=== PATIENT | male | born 1995 | race Caucasian/White ===

== ENCOUNTER → 2021-04-15 07:06 | Outpatient (CLI) | payer OTHER, SELFPAY ==
--- NOTE | 2021-04-15 07:10 | DI.MRI.S_ITS ---
PROCEDURE: MR SHOULDER RT WO CON INDICATIONS: Bicipital tendinitis, unspecified shoulder TECHNIQUE: Noncontrast oblique coronal T2 fast spin echo with fat saturation, oblique sagittal T1 spin echo and T2 fast spin echo with fat saturation, axial T1 spin echo and T2 fast spin echo with fat saturation through the shoulder. COMPARISON: None. FINDINGS: Image quality: Excellent. Rotator cuff: Tendinosis and low-grade articular and bursal surface partial thickness tear involving distal supraspinatus at its insertion on the humeral head is seen extending to musculotendinous junction. Distal infraspinatus tendinosis is also noted. Distal subscapularis tendon is intact. No full-thickness rotator cuff tendon rupture. Sagittal images demonstrate no significant muscle atrophy. Bones and bursae: No bone marrow contusions or fractures. Mild acromioclavicular joint osteoarthritic changes are seen with downward osteophyte formation depressing the musculotendinous junction of supraspinatus. There is small amount of joint fluid and subacromial subdeltoid bursal fluid. Capsule and soft tissues: Focal area of signal abnormality within superior anterior labrum at 1 o'clock position is seen concerning for very subtle focal superior anterior labral tear. The long head of the biceps tendinosis is noted. The rotator interval appears normal, without fibrosis. The coracohumeral ligament is normal in thickness. IMPRESSION: 1. Tendinosis and low-grade articular and bursal surface partial thickness tear involving distal supraspinatus extending to musculotendinous junction. Distal infraspinatus and subscapularis tendinosis. No full-thickness rotator cuff tendon rupture. 2. Mild acromioclavicular joint osteoarthritis. No fracture or dislocation. Small amount of joint effusion and subacromial subdeltoid bursal fluid. 3. Finding is concerning for focal superior anterior labral tear at 1:00 a.m. Position. 4. Proximal intra-articular portion of long head of biceps tendinosis. Dictated by: Remi Pierre M.D. on 04/15/2021 at 8:11 Approved by: Remi Pierre M.D. on 04/15/2021 at 8:23
== END ==
PROVIDERS: Referring Provider Student in an Organized Health Care Education/Training Program; Visit Provider Student in an Organized Health Care Education/Training Program
DX: M75.111 Incomplete rotator cuff tear or rupture of right shoulder, not specified as traumatic (principal); M19.011 Primary osteoarthritis, right shoulder; M75.20 Bicipital tendinitis, unspecified shoulder
CPT/HCPCS: 73221

== ENCOUNTER → 2021-09-21 15:47 | Outpatient (CLI) | payer OTHER, SELFPAY ==
--- NOTE | 2021-09-21 | DI.MRI.S_ITS ---
PROCEDURE: MR KNEE RT WO CON INDICATIONS: RIGHT KNEE PAIN TECHNIQUE: Noncontrast sagittal PD fast spin echo and T2 fast spin echo with fat saturation, sagittal 3-D FLASH with fat saturation; coronal T1 spin echo and PD fast spin echo with fat saturation, and axial PD fast spin echo with fat saturation through the knee. COMPARISON: None. FINDINGS: Image quality: Excellent. Menisci: The medial and lateral menisci demonstrate normal morphology and internal signal. The meniscal root ligaments appear intact. Cruciate ligaments: The anterior and posterior cruciate ligaments appear intact. Medial structures: The medial collateral ligament appears intact. The posterior oblique ligament, semimembranosus tendon insertions, oblique popliteal ligament, and meniscocapsular junction appear intact. Visualized portions of the pes anserinus tendons appear normal. No abnormal bursal fluid. Lateral structures: The lateral collateral ligament, long and short heads of the biceps femoris tendon appear intact. The popliteus tendon appears normal; the popliteofibular ligament appears intact. The posterosuperior and anteroinferior popliteomeniscal fascicles appear intact. The arcuate and fabellofibular ligaments appear intact, on either side of the lateral inferior geniculate artery. Iliotibial band appears normal. Anterior structures: The quadriceps and patellar tendons appear intact. Patellar alignment is normal. No femoral trochlear dysplasia or ventral trochlear prominence. No edema in the infrapatellar fat pad. Fluid in the prepatellar soft tissues. Bones and cartilage: No bone marrow contusions or fractures. The cartilage of the medial and lateral femorotibial compartments appears normal in thickness. Focal, approximately 4 millimeter, full-thickness articular cartilage defect involving the inferior margin of the medial patellar facet. Joint space: There is physiologic knee joint fluid. No Hammond's cyst. Normal appearing synovial plicae are incidentally noted. IMPRESSION: 1. Prepatellar bursitis. 2. Small, approximately 4 millimeter, full-thickness articular cartilage defect involving the inferior margin of the medial patellar facet. Dictated by: Kirti Cason MD, PhD on 09/21/2021 at 17:13 Approved by: Kirti Cason MD, PhD on 09/22/2021 at 18:02
== END ==
DX: M70.41 Prepatellar bursitis, right knee (principal); M25.561 Pain in right knee
CPT/HCPCS: 73721